=== PATIENT | male | born 1955 | race Caucasian/White ===

== ENCOUNTER → 2017-03-04 | Outpatient (CLI) | payer MEDICARE ==
[~2017-03-04] MED LIST: ATENOLOL50 MG PO; B/P PILL PO; FLOMAX 0.4MG C0.4 MG PO; HYDROCHLOROTH12.5 M1 PO; HYDROCODONE1 TABLET PO; IMDUR30 MG PO; Isosorbide Mono60 MG PO; KEFLEX 500MG.500 MG PO; LEVOFLOXACIN 7750 M1 PO; LIPITOR20 M1 PO; MELOXICAM15 MG PO; NAPROSYN 500MG500 MG PO; PRAVASTATIN 40M40 MG PO; TRAMADOL 50MG T50 M1 PO; WARFARIN SOD5 MG PO
--- NOTE | 2017-03-05 05:38 | RADIOLOGY REPORT PS360 ---
PROCEDURE: 2-D M-mode and color Doppler study INDICATIONS FOR THE TEST: Chest pain + COPD Heart Murmur Tobacco Smoking Palpitations Fatigue Syncope Edema+ Hypertension+Diabetes Mellitus Rheumatic Fever SOB+BENJAMIN Obesity+Hyperlipidemia+ Family History HD Additional History STENTS PATIENT INFORMATION HEIGHT:68 WEIGHT:268 GENDER: Male B/P: 2-D/M-MODE INTERPRETATION: 2-D MEASUREMENTS OBSERVED VALUES IN CMS Right Ventricular Dimension (RVDd) 2.6 Interventricular Septum (Thickness)(IVsd) 1.0 Left Ventricular Internal Dimensions(LVIDd) 5.7 Left Ventricular Posterior Wall (Thickness)(LVPWd) 0.5 Aortic Root 3.5 Aortic Cusp Separation 2.3 Left Atrial Dimensions (LAD) 3.9 2D 1. Left atrium is upper limit of the normal size, left ventricle is normal size, left ventricle wall thickness is upper limit of the normal, there is preserved left ventricular systolic function, visually estimated ejection fraction 55% with no obvious regional wall motion abnormality. 2. The right atrium and right ventricle are normal size and contractility. 3. The aortic valve is minimally thickened and fibrosed. 4. The mitral and tricuspid valve are grossly normal. 5. The pulmonic valve is poorly visualized. 6. No significant pericardial effusion noted. DOPPLER INTERROGATION: Doppler interrogation of the aortic, mitral and tricuspid valvular presence of mild mitral and tricuspid regurgitation, tricuspid regurgitant jet velocity is insufficient for calculation of the right ventricular systolic pressure, grade 1 diastolic dysfunction seen without tissue Doppler evidence of raised left atrial pressure. CONCLUSION: 1. Normal left ventricular size, preserved left ventricular systolic function, visually estimated ejection fraction 55% with no obvious regional wall motion abnormality, grade 1 diastolic dysfunction seen without tissue Doppler evidence of raised left atrial pressure. 2. Mild mitral and tricuspid regurgitation. 3. No significant pericardial effusion noted.
== END ==
LOC: RT 09:03
DX: I50.32 Chronic diastolic (congestive) heart failure (principal)